=== PATIENT | male | born 1945 | race Caucasian/White ===

== ENCOUNTER 2017-05-16 06:27 | Emergency (ER) | payer OTHER ==
[~2017-05-16] VITALS: Ht 180.3 cm; Wt 84.1 kg
[~2017-05-16 06:27] MED LIST: LATANOPROST2.5 ML BOTH EYES; LIPITOR40 MG PO; METFORMIN HCL750 MG PO; PREDNISONE20 MG PO; PROAIR RESPICL90 MCG IH
[2017-05-16] MEDS ORDERED: PRAVASTATIN SOD40 MG PO (07:09)
[2017-05-16 08:03] LABS: MCH 29.9 PG (29.0-34.0); MCHC 34.1 G/DL (30.0-36.0); MCV 87.6 FL (86-99); MEAN PLAT.VOLUME 9.2 uM^3 (9.0-12.4); PLATELET COUNT 202 K/uL (156-360); RBC DIS.WIDTH-CV 11.9 % (11.8-14.6); RED BLOOD COUNT 5.25 M/uL (4.00-5.50); WHITE BLOOD COUNT 6.8 K/uL (4.1-10.2)
[2017-05-16 08:08] LABS: ADD MIUA? NO; BILIRUBIN NEGATIVE; BLOOD NEGATIVE; COLOR YELLOW ((YELLOW)); GLUCOSE (STRIP) NEGATIVE; KETONES NEGATIVE; LEUKOCYTES NEGATIVE; NITRITE NEGATIVE; PROTEIN (STRIP) NEGATIVE; SPECIFIC GRAVITY 1.018 (1.000-1.030); UCUL ADDED? NO; UROBILINOGEN 0.2 MG/DL (0.2-1.0)
[2017-05-16 08:44] LABS: ANION GAP 7 MEQ/L (2-14); CHLORIDE 104 MEQ/L (99-109); GFR ESTIMATE (CALCULATED) > 59 mL/min/; GLUCOSE 133 mg/dL (70-99); POTASSIUM 4.6 MEQ/L (3.7-5.4); SAMPLE HEMOLYSIS CHECK 1; SAMPLE ICTERIC CHECK 0; SAMPLE LIPEMIA CHECK 0; SODIUM 138 MEQ/L (136-147); UREA NITROGEN (BUN) 14 mg/dL (9-23)
[2017-05-16] MEDS ORDERED: MECLIZINE HCL25 MG PO (10:10)
[2017-05-16 10:21] VITALS: BP 158/88
== END 2017-05-16 10:22 | disposition home or self-care (01) ==
LOC: EME 06:27
PROVIDERS: Emergency Medicine
DX: H81.399 Other peripheral vertigo, unspecified ear (principal); E11.9 Type 2 diabetes mellitus without complications; Z79.84 Long term (current) use of oral hypoglycemic drugs
CPT/HCPCS: 70450; 80048; 81003; 85027; 93005; 99281; 99285; J7030

== ENCOUNTER 2018-02-08 21:57 | Inpatient (IN) | payer OTHER ==
[~2018-02-08] VITALS: Ht 182.9 cm; Wt 83.8 kg
[~2018-02-08 21:57] MED LIST changes: +IRON325 M1 PO; +MECLIZINE HCL25 MG PO; +PRAVASTATIN SOD40 MG PO; +VENTOLIN HFA18 GM IH
[2018-02-09 07:09] VITALS: BP 154/81
[2018-02-09 13:54] VITALS: BP 155/75
[2018-02-09 16:00] VITALS: BP 159/80
[2018-02-09 20:14] VITALS: BP 149/71
[2018-02-10 00:21] VITALS: BP 155/75
[2018-02-10 04:29] VITALS: BP 157/84
[2018-02-10 06:27] LABS: CHLORIDE 102 MEQ/L (99-109); CREATININE 0.7 MG/DL (0.6-1.3); GFR ESTIMATE (CALCULATED) > 59 mL/min/ (58.99-99999); GLUCOSE 144 mg/dL (70-99); POTASSIUM 4.1 MEQ/L (3.7-5.4); SODIUM 137 MEQ/L (136-147); UREA NITROGEN (BUN) 13 mg/dL (9-23)
[2018-02-10 08:17] VITALS: BP 84/52
[2018-02-10] MEDS ORDERED: OXYCODONE HCL5 MG PO (08:29)
[2018-02-10] MEDS ORDERED: ELIQUIS2.5 MG PO (08:29)
[2018-02-10 09:50] VITALS: BP 151/80
[2018-02-10 11:39] VITALS: BP 148/74
== END 2018-02-10 12:35 | DRG 470 ==
LOC: ENRESERV 21:57 → 2SOUTH 02-09 06:51 → 3WEST 02-09 13:43 → 2SOUTH 02-09 15:00 → 3WEST 02-10 12:35
PROVIDERS: Orthopaedic Surgery
PROC: 0SRC0J9 Replacement of Right Knee Joint with Synthetic Substitute, Cemented, Open Approach (ICD-10-PCS; principal; 2018-02-09)
DX: M17.11 Unilateral primary osteoarthritis, right knee (principal); E11.9 Type 2 diabetes mellitus without complications; Z79.84 Long term (current) use of oral hypoglycemic drugs; E78.00 Pure hypercholesterolemia, unspecified
CPT/HCPCS: 80048; 82948; C1713; J0131; J0690; J1885; J2250; J2405; J2795; J7050; J7120; L1820; S0020